=== PATIENT | female | born 2005 | race Two or more races ===

== ENCOUNTER 2024-09-24 04:43 | Inpatient (IN) | payer SELFPAY ==
[~2024-09-24 04:43] MED LIST: Bupivacaine 0.25% 10 ML SDV ONE
[2024-09-24] MEDS ORDERED: Lidocaine 1% 50 ML MDV INJECT PRN (04:52)
[2024-09-24] MEDS ORDERED: Nalbuphine 10 MG/1 ML Vial IVPUSH PRN (04:52)
[2024-09-24] MEDS ORDERED: Sodium Chloride 0.9% 10 ML Syringe FLUSH PRN (04:52)
[2024-09-24] MEDS: Lactated Ringers 1,000 ML IV SCH (05:00)
[2024-09-24 05:43] LABS: BASOPHILS PERCENT AUTO 0.2 % (0.0-1.0); EOSINOPHILS PERCENT AUTO 0.2 % (0.0-6.0); HEMATOCRIT 32.1 % (37.0-47.0); HEMOGLOBIN 10.9 gm/dl (12.0-16.0); IMMATURE GRAN ABSOLUTE AUTO 0.07 K/mm3 (0.00-0.05); IMMATURE GRAN PERCENT AUTO 0.6 % (0.0-0.4); LYMPHOCYTES ABSOLUTE AUTO 1.5 K/mm3 (1.0-4.8); LYMPHOCYTES PERCENT AUTO 13.5 % (24.0-44.0); MEAN CORPUSCULAR VOLUME 79.5 fl (83.0-99.0); MEAN PLATELET VOLUME 11.8 fl (9.4-12.3); MONOCYTES ABSOLUTE AUTO 0.7 K/mm3 (0.0-0.8); MONOCYTES PERCENT AUTO 6.6 % (0.0-8.0); NEUTROPHILS ABSOLUTE AUTO 8.9 K/mm3 (1.8-7.7); NEUTROPHILS PERCENT AUTO 78.9 % (41.0-71.0); PLATELET COUNT,PLT 180 K/mm3 (150-400); RED BLOOD CELL COUNT 4.04 M/mm3 (4.10-5.30); WHITE BLOOD CELL COUNT,WBC 11.26 K/mm3 (3.9-11.3)
[2024-09-24] MEDS ORDERED: ePHEDrine 50 MG/ML SDV IVPUSH PRN (05:47)
[2024-09-24] MEDS ORDERED: fentaNYL 100 MCG/2 ML SDV EPIDUR PRN (05:47)
[2024-09-24] MEDS ORDERED: Bupivacaine/fentaNYL/NS 100 ML Bag EPIDUR PRN (05:47)
[2024-09-24] MEDS ORDERED: diphenhydrAMINE 50 MG/ML SDV IVPUSH PRN (05:47)
[2024-09-24] MEDS: Ropivacaine 200 MG in Premix Bag 1 BAG EPIDUR PRN (05:55)
[2024-09-24] MEDS: Ondansetron 4 MG/2 ML SDV IVPUSH PRN (08:01)
[2024-09-24] MEDS: Oxytocin/0.9 % Sodium Chloride 30 UNIT/500 ML BAG IV SCH (11:32)
[2024-09-24] MEDS ORDERED: Ibuprofen 800 MG Tab PO SCH (15:00)
[2024-09-24] MEDS: Ibuprofen 600 MG Tab PO SCH (15:02)
[2024-09-24] MEDS: Witch Hazel Medicated Pads 40/Jar TOP PRN (16:13)
[2024-09-24] MEDS: Benzocaine/Menthol 20%-0.5% Spray 78 GM Cannister TOP PRN (16:14)
[2024-09-24] MEDS: Docusate Sodium 100 MG Cap PO PRN (20:24)
[2024-09-24] MEDS: Acetaminophen 325 MG Tab PO PRN (21:49)
== END 2024-09-25 14:42 | disposition home or self-care (01) | DRG 807 ==
LOC: JD.OBCHECK 04:43 → JD.OB 04:50 → JD.OBCHECK 05:00 → JD.OB 05:16 → OBSVTOIN 11:31 → JD.OB 11:32
PROVIDERS: ADMIT Obstetrics & Gynecology; ATTEND Obstetrics & Gynecology
PROC: 10E0XZZ Delivery of Products of Conception, External Approach (ICD-10-PCS; principal; 2024-09-25)
PROC: 3E0R3BZ Introduction of Anesthetic Agent into Spinal Canal, Percutaneous Approach (ICD-10-PCS; 2024-09-25)
PROC: 00HU33Z Insertion of Infusion Device into Spinal Canal, Percutaneous Approach (ICD-10-PCS; 2024-09-25)
PROC: 10907ZC Drainage of Amniotic Fluid, Therapeutic from Products of Conception, Via Natural or Artificial Opening (ICD-10-PCS; 2024-09-25)
PROC: 3E033VJ Introduction of Other Hormone into Peripheral Vein, Percutaneous Approach (ICD-10-PCS; 2024-09-25)
PROC: 0UQMXZZ Repair Vulva, External Approach (ICD-10-PCS; 2024-09-25)
DX: O34.219 Maternal care for unspecified type scar from previous cesarean delivery (principal); Z37.0 Single live birth; Z3A.38 38 weeks gestation of pregnancy; O70.0 First degree perineal laceration during delivery
CPT/HCPCS: 36415; 51701; 51702; 59025; 59409; 85025; 86592; 86850; 86900; 86901; A9270-GY; J0665; J2405; J2795; J7120; J7999